=== PATIENT | male | born 1995 | race Caucasian/White ===

== ENCOUNTER 2019-08-28 08:51 | Day surgery (SDC) | payer OTHER | END 2019-08-28 11:00 | disposition home or self-care (01) | LOC: JASU-ENDO 08:51 | PROVIDERS: ATTEND Internal Medicine Gastroenterology | PROC: 0DJD8ZZ Inspection of Lower Intestinal Tract, Via Natural or Artificial Opening Endoscopic (ICD-10-PCS; principal; 2019-08-28 09:45) | DX: R19.4 Change in bowel habit (principal) ==